=== PATIENT | male | born 1950 | race Caucasian/White ===

== ENCOUNTER → 2019-02-20 | Outpatient (CLI) | payer OTHER | LOC: HYPER 02-18 14:56 | DX: T81.89XA Other complications of procedures, not elsewhere classified, initial encounter (principal); L89.322 Pressure ulcer of left buttock, stage 2; E10.622 Type 1 diabetes mellitus with other skin ulcer; L98.411 Non-pressure chronic ulcer of buttock limited to breakdown of skin; S51.802A Unspecified open wound of left forearm, initial encounter; E10.39 Type 1 diabetes mellitus with other diabetic ophthalmic complication; H40.9 Unspecified glaucoma; H42 Glaucoma in diseases classified elsewhere; I10 Essential (primary) hypertension; E10.610 Type 1 diabetes mellitus with diabetic neuropathic arthropathy; E10.69 Type 1 diabetes mellitus with other specified complication; M86.8X8 Other osteomyelitis, other site; R53.0 Neoplastic (malignant) related fatigue; I48.0 Paroxysmal atrial fibrillation; M15.0 Primary generalized (osteo)arthritis; Z89.511 Acquired absence of right leg below knee; Z89.512 Acquired absence of left leg below knee; Z95.2 Presence of prosthetic heart valve; Z79.4 Long term (current) use of insulin; Z79.01 Long term (current) use of anticoagulants; Z86.73 Personal history of transient ischemic attack (TIA), and cerebral infarction without residual deficits; Z85.6 Personal history of leukemia; X58.XXXA Exposure to other specified factors, initial encounter; Y93.89 Activity, other specified; Y92.89 Other specified places as the place of occurrence of the external cause; Y83.8 Other surgical procedures as the cause of abnormal reaction of the patient, or of later complication, without mention of misadventure at the time of the procedure; Y99.8 Other external cause status ==